=== PATIENT | male | born 1985 | race Caucasian/White ===

== ENCOUNTER 2018-03-10 17:06 | Emergency (ER) | payer SELFPAY, OTHER ==
[2018-03-10] MEDS: IOHEXOL 350 MG/ML 10 ML VIAL (for RAD DIAG) IVCONTRAST (17:07)
[2018-03-10] MEDS: KETOROLAC TROMETHAMINE 30 MG/ML (IVP) VIAL IV PUSH (19:42)
[2018-03-10 20:00] LABS: AUTOMATED NEUTROPHIL # 6.4 TH/MM3 (1.8-7.7); BASOPHIL # 0.1 TH/MM3 (0-0.2); BASOPHIL % 0.6 % (0.0-2.0); EOSINOPHIL # 0.1 TH/MM3 (0-0.4); EOSINOPHIL % 1.3 % (0.0-4.0); HEMATOCRIT 48.4 % (39.0-51.0); HEMO FLAGS DIFF FINAL; HEMOGLOBIN 16.8 GM/DL (13.0-17.0); LYMPH % 23.9 % (9.0-44.0); LYMPHOCYTE # 2.3 TH/MM3 (1.0-4.8); MEAN CELL VOLUME 89.1 FL (80.0-100.0); MEAN CORPUSCULAR HEMOGLOBIN 30.8 PG (27.0-34.0); MEAN CORPUSCULAR HGB CONC 34.6 % (32.0-36.0); MEAN PLATELET VOLUME 9.2 FL (7.0-11.0); MONO % 8.7 % (0.0-8.0); MONOCYTE # 0.9 TH/MM3 (0-0.9); NEUT % 65.5 % (16.0-70.0); PLATELET COUNT 263 TH/MM3 (150-450); RED BLOOD COUNT 5.44 MIL/MM3 (4.50-5.90); RED CELL DISTRIBUTION WIDTH 12.6 % (11.6-17.2); WHITE BLOOD COUNT 9.8 TH/MM3 (4.0-11.0)
[2018-03-10 20:18] LABS: ALBUMIN 3.8 GM/DL (3.4-5.0); ANION GAP 6 MEQ/L (5-15); AST (GOT) 10 U/L (15-37); BLOOD UREA NITROGEN 11 MG/DL (7-18); CALCIUM 8.2 MG/DL (8.5-10.1); CHLORIDE 110 MEQ/L (98-107); CREATININE 0.81 MG/DL (0.60-1.30); GLOMERULAR FILTRATION RATE 110 ML/MIN (>89); GLUCOSE,RANDOM 74 MG/DL (74-106); POTASSIUM 4.2 MEQ/L (3.5-5.1); SODIUM (NA) 143 MEQ/L (136-145)
[2018-03-10 20:22] LABS: ALKALINE PHOSPHATASE 57 U/L (45-117); ALT (GPT) 19 U/L (12-78); TOTAL BILIRUBIN ADULT 0.6 MG/DL (0.2-1.0); TOTAL PROTEIN 7.2 GM/DL (6.4-8.2)
[2018-03-10 20:54] LABS: BILIRUBIN, URINE NEG (NEG); BLOOD, URINE NEG (NEG); COMMENT (UR) CULT NOT INDICATED; CULTURE IF INDICATED CULT NOT INDICATED; GLUCOSE,URINE NEG (NEG); KETONE, URINE NEG (NEG); MUCUS URINE FEW /lpf (OCC); NITRITE,URINE NEG (NEG); URINE COLOR YELLOW (YELLW/STRAW); URINE LEUKOCYTE ESTERASE NEG (NEG)
== END 2018-03-10 22:25 | disposition home or self-care (01) ==
LOC: NEPD 17:06
DX: K42.9 Umbilical hernia without obstruction or gangrene (principal); F32.9 Major depressive disorder, single episode, unspecified; F41.9 Anxiety disorder, unspecified; F17.210 Nicotine dependence, cigarettes, uncomplicated
CPT/HCPCS: 74177; 80053; 81001; 85025; 96374; 99284-25